=== PATIENT | female | born 1955 | race Hispanic/Latino ===

== ENCOUNTER 2017-03-18 10:26 | Inpatient (IN) | payer MEDICAID ==
--- NOTE | 2017-03-18 10:43 | ED PDOC ---
Arrival/HPI - General Time Seen by Provider: 03/18/17 10:39 Historian: Patient, Family - History of Present Illness Narrative History of Present Illness (Text): 03/18/17 10:35 Sharon Barrera is a 61 year old female whose past medical history includes hypertension, COPD, diabetes, and lung cancer (chemotherapy and radiation), who presents to the emergency department via EMS after her son found her on the ground. According to son, patient was not feeling well since last night and this morning he noticed she had right sided body weakness. Patient denies fever , headache, abdominal pain, chest pain, or other complaints. PMD: Dr. Sun Time/Duration: Prior to Arrival Symptom Onset: Sudden Symptom Course: Unchanged Activities at Onset: Rest Context: Home Past Medical History - Provider Review Nursing Documentation Reviewed: Yes - Infectious Disease Hx of Infectious Diseases: None - Tetanus Immunization Tetanus Immunization: Unknown - Cardiac Hx Cardiac Disorders: Yes Hx Hypertension: Yes - Pulmonary Hx Respiratory Disorders: Yes Hx Chronic Obstructive Pulmonary Disease (COPD): Yes Hx Lung Cancer: Yes Hx Tuberculosis: No - Neurological Hx Neurological Disorder: No - HEENT Hx HEENT Disorder: No Other/Comment: + eyeglasses - Renal Hx Renal Disorder: No - Endocrine/Metabolic Hx Endocrine Disorders: Yes Hx Diabetes Mellitus Type 2: Yes Hx Hypothyroidism: Yes - Hematological/Oncological Hx Cancer: Yes (Lung) Hx Chemotherapy: Yes (Last tx on 15 March 2016) - Integumentary Hx Dermatological Disorder: No - Musculoskeletal/Rheumatological Hx Musculoskeletal Disorders: Yes Hx Arthritis: Yes (lower back) - Gastrointestinal Hx Gastrointestinal Disorders: No - Genitourinary/Gynecological Hx Genitourinary Disorders: No - Psychiatric Hx Psychophysiologic Disorder: No Hx Substance Use: No - Past Surgical History Past Surgical History: No Previous - Surgical History Hx Tubal Ligation: Yes Other/Comment: R chest port a cath. L breast biopsy x 2 - Anesthesia Hx Anesthesia: Yes Hx Anesthesia Reactions: No Hx Malignant Hyperthermia: No - Suicidal Assessment Feels Threatened In Home Enviroment: No Family/Social History - Physician Review Nursing Documentation Reviewed: Yes Family/Social History: Unknown Family HX Smoking Status: Heavy Smoker > 10 Cigarettes Daily Hx Alcohol Use: No Hx Substance Use: No Hx Substance Use Treatment: No Allergies/Home Meds Allergies/Adverse Reactions: Allergies nicotin patch Allergy (Uncoded 03/20/16 15:20) RASH Home Medications: Home Meds Medication Instructions Recorded Confirmed Cyanocobalamin [Vitamin B12 1000 1,000 mcg PO DAILY 11/21/15 07/18/16 mcg Tab] Folic Acid 1 mg PO DAILY 11/21/15 07/18/16 Ipratropium [place] [Ipratropium 0.02 mg IH Q6H 11/21/15 07/18/16 [place]] Levalbuterol [Xopenex] 0.63 mg IH PRN PRN 11/21/15 07/18/16 Magnesium Oxide [Mag-Ox] 400 mg PO BID 11/21/15 07/18/16 Ranitidine HCl [Zantac] 300 mg PO DAILY 11/21/15 07/11/16 SITagliptin [Januvia] 100 mg PO DAILY 11/21/15 07/18/16 Gabapentin [Neurontin] 200 mg PO BID 11/22/15 07/18/16 Omeprazole 20 mg PO DAILY 11/22/15 07/18/16 Acyclovir [Zovirax] 400 mg PO BID 03/27/16 07/18/16 Dexamethasone [Decadron] 4 mg PO QOTHERDAY 07/11/16 07/18/16 Review of Systems - Review of Systems Constitutional: absent: Fevers Eyes: absent: Vision Changes ENT: absent: Epistaxis Respiratory: absent: SOB Cardiovascular: absent: Chest Pain Gastrointestinal: absent: Abdominal Pain, Nausea, Vomiting Genitourinary Female: absent: Dysuria, Frequency Musculoskeletal: absent: Back Pain Skin: absent: Rash Neurological: Focal Weakness (right sided ). absent: Headache Endocrine: absent: Diaphoresis Physical Exam Vital Signs Reviewed: Yes Vital Signs Temp Pulse Resp BP Pulse Ox 03/18/17 13:08 86 18 138/71 98 03/18/17 10:37 98.3 F 58 L 18 140/80 96 Temperature: Afebrile Blood Pressure: Normal Pulse: Bradycardic Respiratory Rate: Normal Appearance: Positive for: Well-Appearing, Non-Toxic, Comfortable Pain Distress: None Mental Status: Positive for: Alert and Oriented X 3 - Systems Exam Head: Present: Atraumatic, Normocephalic Pupils: Present: PERRL Extroacular Muscles: Present: EOMI Conjunctiva: Present: Normal Respiratory/Chest: Present: Clear to Auscultation, Good Air Exchange. No: Respiratory Distress, Accessory Muscle Use Cardiovascular: Present: Regular Rate and Rhythm, Normal S1, S2. No: Murmurs Neurological: Present: GCS=15, CN II-XII Intact, Speech Normal. No: Motor Func Grossly Intact (right sided weakness upper and lower extremity 1/5 compared to left side) Skin: Present: Warm, Dry, Normal Color. No: Rashes Psychiatric: Present: Alert, Oriented x 3, Normal Insight, Normal Concentration Medical Decision Making ED Course and Treatment: 03/18/17 Impression: 61 year old female with right sided weakness upper and lower extremity 1/5 compared to left side 5/5 strength. Plan: -- EKG -- Chest X-ray -- CT Head -- Labs -- Reassess and disposition Progress Notes: EKG: Ordered, reviewed, and independently interpreted the EKG. Rate : 103 BPM Rhythm : tachycardia Interpretation : No ST-segment elevations or depressions, no T-wave inversions, normal intervals. 03/18/17 12:[address]: Creator : Morgan Gu MD COMPARISON: 09/16/2015 FINDINGS: HEMORRHAGE: No intracranial hemorrhage. BRAIN: There is a large amount of vasogenic edema in the left hemisphere with a suspected 2.5 cm mass in the left frontal lobe. This is seen on image 26 series 2. A follow-up contrasted enhanced MRI scan is suggested for further evaluation. VENTRICLES: Unremarkable. No hydrocephalus. CALVARIUM: Unremarkable. PARANASAL SINUSES: Unremarkable as visualized. No significant inflammatory changes. MASTOID AIR CELLS: Unremarkable as visualized. No inflammatory changes. OTHER FINDINGS: None. IMPRESSION: Large amount of vasogenic edema in the left hemisphere with probable 2.5 cm mass in the left frontal lobe. Follow-up MRI with contrast is recommended - Lab Interpretations Lab Results: 03/18/17 11:05 03/18/17 11:05 Lab Results 03/18/17 11:05: Sodium 139, Potassium 3.8, Chloride 104, Carbon Dioxide 23, Anion Gap 15, BUN 24 H, Creatinine 1.3 H, Est GFR ( Amer) 50, Est GFR ( Non-Af Amer) 41, Random Glucose 161 H, Calcium 10.4, Total Bilirubin 1.2, AST 18 , ALT 23, Alkaline Phosphatase 85, Total Creatine Kinase 95, Troponin I 0.03 D , Total Protein 7.4, Albumin 4.3, Globulin 3.1, Albumin/Globulin Ratio 1.4 03/18/17 11:05: PT 13.4 H, INR 1.21 H, APTT 32.7 03/18/17 11:05: WBC 8.7 D, RBC 3.80, Hgb 10.8 L, Hct 33.0 L, MCV 86.8, MCH 28.4 , MCHC 32.7, RDW 20.2 H, Plt Count 57 L, MPV 9.1, Gran % 82.5 H, Lymph % (Auto) 7.1 L, Phillips % (Auto) 9.1 H, Eos % (Auto) 0.6 L, Baso % (Auto) 0.7, Gran # 7.17 H , Lymph # 0.6 L, Phillips # 0.8 H, Eos # 0.1, Baso # 0.06 I have reviewed the lab results: Yes - RAD Interpretation Radiology Orders: 03/18/17 10:51 HEAD W/O CONTRAST [CT] Stat Day Treatment Clinician/Art Therapist: Radiologist - EKG Interpretation Interpreted by ED Physician: Yes Type: 12 lead EKG - Medication Orders Current Medication Orders: Amlodipine Besylate (Norvasc) 10 mg PO DAILY [facility] Atorvastatin Calcium (Lipitor) 10 mg PO DIN [facility] Folic Acid (Folic Acid) 1 mg PO DAILY [facility] Gabapentin (Neurontin) 200 mg PO BID [facility] PRN Reason: Protocol Levothyroxine Sodium (Synthroid) 125 mcg PO ACB [facility] Pantoprazole Sodium (Protonix Ec Tab) 40 mg PO DAILY [facility] Ramipril (Altace) 10 mg PO DAILY [facility] Sitagliptin Phosphate (Januvia) 100 mg PO DAILY [facility] Discontinued Medications Dexamethasone (Decadron Inj) 10 mg IVP STAT STA Stop: 03/18/17 13:11 - Scribe Statement The provider has reviewed the documentation as recorded by the Patrick Huber Provider Scribe Attestation: All medical record entries made by the Scribe were at my direction and personally dictated by me. I have reviewed the chart and agree that the record accurately reflects my personal performance of the history, physical exam, medical decision making, and the department course for this patient. I have also personally directed, reviewed, and agree with the discharge instructions and disposition. Disposition/Present on Arrival - Present on Arrival Any Indicators Present on Arrival: No History of DVT/PE: No History of Uncontrolled Diabetes: No Urinary Catheter: No History Surgical Site Infection Following: None - Disposition Have Diagnosis and Disposition been Completed?: Yes Disposition: HOSPITALIZED Disposition Time: 13:17 Patient Plan: Admission Condition: FAIR
[2017-03-18 11:22] LABS: BASO # 0.06 K/mm3 (0.0-2.0); BASO % 0.7 % (0.0-3.0); EOS # 0.1 (0.0-0.7); EOS % 0.6 % (1.5-5.0); GRAN # 7.17 (1.4-6.5); GRAN % 82.5 % (50.0-68.0); LYMPH # 0.6 (1.2-3.4); LYMPH % 7.1 % (22.0-35.0); MEAN CELL VOLUME 86.8 fl (80.0-105.0); MEAN CORPUSCULAR HEMOGLOBIN 28.4 pg (25.0-35.0); MEAN CORPUSCULAR HGB CONC 32.7 g/dl (31.0-37.0); MEAN PLATELET VOLUME 9.1 fl (7.0-11.0); MONO # 0.8 (0.1-0.6); MONO % 9.1 % (1.0-6.0); RED CELL DISTRIBUTION WIDTH 20.2 % (11.5-14.5); WHITE BLOOD COUNT 8.7 10^3/ul (4.5-11.0)
[2017-03-18 11:31] LABS: INR 1.21 (0.93-1.08); PARTIAL THROMBOPLASTIN TIME 32.7 Seconds (25.1-36.5)
[2017-03-18 11:52] LABS: ALB/GLOB RATIO 1.4 (1.1-1.8); BILIRUBIN,TOTAL 1.2 mg/dL (0.2-1.3); CALCIUM 10.4 mg/dL (8.4-10.5); POTASSIUM 3.8 mmol/L (3.6-5.0); TOTAL PROTEIN 7.4 g/dL (5.8-8.3)
[2017-03-18 12:01] LABS: TROPONIN I 0.03 ng/mL
--- NOTE | 2017-03-18 12:22 | CT ---
PROCEDURE: CT HEAD WITHOUT CONTRAST. HISTORY: tia COMPARISON: 09/16/2015 TECHNIQUE: Axial computed tomography images were obtained through the head/brain without intravenous contrast. Radiation dose: Total exam DLP = 581 mGy-cm. This CT exam was performed using one or more of the following dose reduction techniques: Automated exposure control, adjustment of the mA and/or kV according to patient size, and/or use of iterative reconstruction technique. FINDINGS: HEMORRHAGE: No intracranial hemorrhage. BRAIN: There is a large amount of vasogenic edema in the left hemisphere with a suspected 2.5 cm mass in the left frontal lobe. This is seen on image 26 series 2. A follow-up contrasted enhanced MRI scan is suggested for further evaluation. VENTRICLES: Unremarkable. No hydrocephalus. CALVARIUM: Unremarkable. PARANASAL SINUSES: Unremarkable as visualized. No significant inflammatory changes. MASTOID AIR CELLS: Unremarkable as visualized. No inflammatory changes. OTHER FINDINGS: None. IMPRESSION: Large amount of vasogenic edema in the left hemisphere with probable 2.5 cm mass in the left frontal lobe. Follow-up MRI with contrast is recommended
--- NOTE | 2017-03-18 12:42 | CARD ---
APPROVED REPORT EKG Measurement Heart [id number] <Conclusion> Poor data quality, interpretation may be adversely affected Sinus tachycardia with fusion complexes Possible Inferior infarct, age undetermined Abnormal ECG
[2017-03-18] MEDS ORDERED: Levothyroxine 125 MCG TAB PO SCH (13:15)
[2017-03-18] MEDS: Pantoprazole 40 mg EC Tab PO SCH (15:35)
--- NOTE | 2017-03-18 15:39 | CP.PCM.CON ---
<Mari Branham - Last Filed: 03/18/17 15:44> History of Present Illness - History of Present Illness History of Present Illness: PGY-2 Neurology consult note for Dr. Dobbins's 61 year old female with past medical history of hypertension, COPD, diabetes, and lung cancer (chemotherapy and radiation), who presents to the emergency department via EMS after her son found her on the ground. According to son, he found on the ground face down, originally she was unresponsive but woke when he son found her. Son states that he moved her to the bed and noticed that she was slurring her speech and unable to move her right side. He states that she was walking abnormally the night before but denies any recent illnesses. Her last chemotherapy was in February. Patient also states that she has had radiation to both her chest and head. Patient denies fever, headache, abdominal pain, chest pain, or other complaints. PMH: hypertension, COPD, diabetes, and lung cancer (chemotherapy and radiation) PSH: denies social history: smoked 1 ppd, denies alcohol use, illicit drug use allergy: nicotin patch Review of Systems - Review of Systems All systems: reviewed and no additional remarkable complaints except (as stated in HPI) Past Patient History - Infectious Disease Hx of Infectious Diseases: None - Tetanus Immunizations Tetanus Immunization: Unknown - Past Social History Smoking Status: Heavy Smoker > 10 Cigarettes Daily - CARDIAC Hx Cardiac Disorders: Yes Hx Hypertension: Yes - PULMONARY Hx Respiratory Disorders: Yes Hx Chronic Obstructive Pulmonary Disease (COPD): Yes Hx Lung Cancer: Yes Hx Tuberculosis: No - NEUROLOGICAL Hx Neurological Disorder: No - HEENT Hx HEENT Problems: No Other/Comment: + eyeglasses - RENAL Hx Chronic Kidney Disease: No - ENDOCRINE/METABOLIC Hx Endocrine Disorders: Yes Hx Diabetes Mellitus Type 2: Yes Hx Hypothyroidism: Yes - HEMATOLOGICAL/ONCOLOGICAL Hx Cancer: Yes (Lung) Hx Chemotherapy: Yes (Last tx on 15 March 2016) - INTEGUMENTARY Hx Dermatological Problems: No - MUSCULOSKELETAL/RHEUMATOLOGICAL Hx Musculoskeletal Disorders: Yes Hx Arthritis: Yes (lower back) - GASTROINTESTINAL Hx Gastrointestinal Disorders: No - GENITOURINARY/GYNECOLOGICAL Hx Genitourinary Disorders: No - PSYCHIATRIC Hx Psychophysiologic Disorder: No Hx Substance Use: No - SURGICAL HISTORY Hx Tubal Ligation: Yes Other/Comment: R chest port a cath. L breast biopsy x 2 - ANESTHESIA Hx Anesthesia: Yes Hx Anesthesia Reactions: No Hx Malignant Hyperthermia: No Meds Allergies/Adverse Reactions: Allergies Allergy/AdvReac Type Severity Reaction Status Date / Time nicotin patch Allergy RASH Uncoded 03/20/16 15:20 - Medications Medications: Current Medications Amlodipine Besylate (Norvasc) 10 mg PO DAILY [facility] Atorvastatin Calcium (Lipitor) 10 mg PO DIN [facility] Folic Acid (Folic Acid) 1 mg PO DAILY [facility] Gabapentin (Neurontin) 200 mg PO BID [facility] PRN Reason: Protocol Dexamethasone 8 mg/ Sodium (Chloride) 52 mls @ 150 mls/hr IV Q12 [facility] Levetiracetam (Keppra 500mg Ivpb) 500 mg in 100 mls @ 400 mls/hr IVPB Q12 [facility] Insulin Human Regular (Humulin R Low) 0 units SC ACHS [facility] PRN Reason: Protocol Levothyroxine Sodium (Synthroid) 112 mcg PO 0600 [facility] Lorazepam (Ativan) 0.5 mg IVP ONCE ONE PRN Reason: Protocol Stop: 03/18/17 15:34 Pantoprazole Sodium (Protonix Ec Tab) 40 mg PO DAILY [facility] Ramipril (Altace) 10 mg PO DAILY [facility] Physical Exam - Constitutional Appears: No Acute Distress - Head Exam Head Exam: ATRAUMATIC, NORMAL INSPECTION, NORMOCEPHALIC - Eye Exam Eye Exam: EOMI, Normal appearance, PERRL - ENT Exam ENT Exam: Mucous Membranes Moist - Respiratory Exam Respiratory Exam: Clear to Auscultation Bilateral, NORMAL BREATHING PATTERN. absent: Rhonchi, Wheezes, Respiratory Distress - Cardiovascular Exam Cardiovascular Exam: REGULAR RHYTHM. absent: Tachycardia - Extremities Exam Extremities exam: Positive for: normal inspection. Negative for: pedal edema - Neurological Exam Neurological exam: Alert, CN II-XII Intact - Expanded Neurological Exam Expanded Patient oriented to: place Speech: Slurred Speech Cranial nerves: EOM's Intact: Normal, Nystagmus: Normal, Tongue Deviation: Normal Cerebellar Function: Finger to Nose: Normal Neuro motor strength exam: Left Upper Extremity: 5, Right Upper Extremity: 2/1, Left Lower Extremity: 5, Right Lower Extremity: 2/1 Results - Vital Signs Recent Vital Signs: Last Vital Signs Temp 98.3 F 03/18/17 10:37 Pulse 86 03/18/17 13:08 Resp 18 03/18/17 13:08 BP 138/71 03/18/17 13:08 Pulse Ox 98 12/04/17 13:08 - Labs Result Diagrams: 03/18/17 11:05 03/18/17 11:05 Assessment & Plan - Assessment and Plan (Free Text) Assessment: 61 year old female with past medical history of hypertension, COPD, diabetes, and lung cancer (chemotherapy and radiation), who presents to the emergency department with right sided weakness and slurred speech secondary left frontal mass due to metastatic lung cancer with vasogenic edema. 1. metastatic lung cancer 2. HTN 3. diabetes 4. COPD - CT of head showed 2.5cm mass in left frontal lobe - MRI ordered - decadron 8mg q12 - neurosurgery consult - recommend radiology oncology consult for - started keppra 500mg q12 - EEG ordered Case reviewed and discussed with attending. <Everardo Dobbins - Last Filed: 03/18/17 23:06> Meds - Medications Medications: Current Medications Amlodipine Besylate (Norvasc) 10 mg PO DAILY [facility] Last Admin: 03/18/17 15:36 Dose: 10 mg Atorvastatin Calcium (Lipitor) 10 mg PO DIN [facility] Folic Acid (Folic Acid) 1 mg PO DAILY [facility] Last Admin: 03/18/17 15:35 Dose: 1 mg Gabapentin (Neurontin) 200 mg PO BID [facility] PRN Reason: Protocol Last Admin: 03/18/17 18:18 Dose: 200 mg Dexamethasone 8 mg/ Sodium (Chloride) 52 mls @ 150 mls/hr IV Q12 [facility] Last Admin: 03/18/17 21:17 Dose: 150 mls/hr Levetiracetam (Keppra 500mg Ivpb) 500 mg in 100 mls @ 400 mls/hr IVPB Q12 [facility] Last Admin: 03/18/17 21:20 Dose: 400 mls/hr Insulin Human Regular (Humulin R Low) 0 units SC ACHS [facility] PRN Reason: Protocol Last Admin: 03/18/17 21:45 Dose: Not Given Levothyroxine Sodium (Synthroid) 112 mcg PO 0600 [facility] Pantoprazole Sodium (Protonix Ec Tab) 40 mg PO DAILY [facility] Last Admin: 03/18/17 15:35 Dose: 40 mg Ramipril (Altace) 10 mg PO DAILY [facility] Results - Vital Signs Recent Vital Signs: Last Vital Signs Temp 9.3 F L 03/18/17 19:02 Pulse 72 03/18/17 19:02 Resp 18 03/18/17 19:02 BP 128/79 03/18/17 19:02 Pulse Ox 98 03/18/17 16:05 - Labs Result Diagrams: 03/18/17 11:05 03/18/17 11:05 Attending/Attestation - Attestation I have personally seen and examined this patient.: Yes I have fully participated in the care of the patient.: Yes I have reviewed all pertinent clinical information: Yes
[2017-03-18] MEDS ORDERED: Gadodiamide 287 MG/ML VIAL (15ML) IV ONE (16:22)
[2017-03-18] MEDS: Insulin Reg-LOW-Coverage SC SCH ×2 (18:19→21:45)
[2017-03-18 19:21] VITALS: BMI 24.4
[2017-03-18] MEDS ORDERED: Influenza Vaccine 60 mcg/0.5 mL SYR (4YR UP) IM ONE (19:22)
[2017-03-18] MEDS ORDERED: Dexamethasone 4 mg/1 ml ONE (20:57)
[2017-03-18] MEDS: levETIRAcetam 500mg IVPB 500 MG/100 ML BAG IVPB SCH (21:20)
--- NOTE | 2017-03-18 21:33 | CP.PCM.CON ---
History of Present Illness - History of Present Illness History of Present Illness: Covering Dr. Poon 61 year old female with a history of small cell lung caner dx 10/2014 s/p chemo+ radiation, presenting with AMS, found to have a left frontal brain mass. I am unable to obtain a history from the patient. Per her records, it appears she was found down by her son and brought to the hospital. CT of the brain suggested a left frontal mass of about 2.5cm with vasogenic edema. Past medical, surgical, family, social history cannot be obtained. Allergies: Per documentation nicotine patch Review of systems cannot be obtained. Past Patient History - Infectious Disease Hx of Infectious Diseases: None - Tetanus Immunizations Tetanus Immunization: Unknown - Past Social History Smoking Status: Heavy Smoker > 10 Cigarettes Daily - CARDIAC Hx Cardiac Disorders: Yes Hx Hypercholesterolemia: Yes Hx Hypertension: Yes - PULMONARY Hx Respiratory Disorders: Yes (uses nebulizer machine at home) Hx Chronic Obstructive Pulmonary Disease (COPD): Yes Hx Tuberculosis: No Other/Comment: smokes 1/2 ppd - NEUROLOGICAL Hx Dizziness: Yes (vertigo) - HEENT Hx HEENT Problems: No Other/Comment: + eyeglasses - RENAL Hx Chronic Kidney Disease: No - ENDOCRINE/METABOLIC Hx Endocrine Disorders: Yes Hx Diabetes Mellitus Type 2: Yes Hx Hypothyroidism: Yes - HEMATOLOGICAL/ONCOLOGICAL Hx Anemia: Yes (blood transfusion) Hx Cancer: Yes (Lung dx 2014) Hx Chemotherapy: Yes (chemo ongoing last tx before ) Other/Comment: also had radiation treatments in the past for lung ca - INTEGUMENTARY Hx Dermatological Problems: Yes Other/Comment: right hand wrist elbow bruised and swollen with decreased rom of fingers and painful - MUSCULOSKELETAL/RHEUMATOLOGICAL Hx Falls: Yes (found on floor today) - GASTROINTESTINAL Hx Gastrointestinal Disorders: No - GENITOURINARY/GYNECOLOGICAL Hx Incontinence: Yes (was incontinent today) - PSYCHIATRIC Hx Substance Use: No - SURGICAL HISTORY Other/Comment: R chest port a cath, left lung bx. L breast biopsy x 2 - ANESTHESIA Hx Anesthesia: Yes Hx Anesthesia Reactions: No Hx Malignant Hyperthermia: No Meds Allergies/Adverse Reactions: Allergies Allergy/AdvReac Type Severity Reaction Status Date / Time nicotin patch Allergy RASH Uncoded 03/20/16 15:20 - Medications Medications: Current Medications Amlodipine Besylate (Norvasc) 10 mg PO DAILY [facility] Last Admin: 03/18/17 15:36 Dose: 10 mg Atorvastatin Calcium (Lipitor) 10 mg PO DIN [facility] Folic Acid (Folic Acid) 1 mg PO DAILY [facility] Last Admin: 03/18/17 15:35 Dose: 1 mg Gabapentin (Neurontin) 200 mg PO BID [facility] PRN Reason: Protocol Last Admin: 03/18/17 18:18 Dose: 200 mg Dexamethasone 8 mg/ Sodium (Chloride) 52 mls @ 150 mls/hr IV Q12 [facility] Last Admin: 03/18/17 21:17 Dose: 150 mls/hr Levetiracetam (Keppra 500mg Ivpb) 500 mg in 100 mls @ 400 mls/hr IVPB Q12 [facility] Last Admin: 03/18/17 21:20 Dose: 400 mls/hr Insulin Human Regular (Humulin R Low) 0 units SC ACHS [facility] PRN Reason: Protocol Last Admin: 03/18/17 18:19 Dose: Not Given Levothyroxine Sodium (Synthroid) 112 mcg PO 0600 [facility] Pantoprazole Sodium (Protonix Ec Tab) 40 mg PO DAILY [facility] Last Admin: 03/18/17 15:35 Dose: 40 mg Ramipril (Altace) 10 mg PO DAILY [facility] Physical Exam - Head Exam Head Exam: ATRAUMATIC - Eye Exam Eye Exam: Normal appearance - ENT Exam ENT Exam: Mucous Membranes Dry - Respiratory Exam Respiratory Exam: NORMAL BREATHING PATTERN - Cardiovascular Exam Cardiovascular Exam: +S1, +S2 - GI/Abdominal Exam GI & Abdominal Exam: Normal Bowel Sounds - Extremities Exam Extremities exam: Positive for: normal inspection Results - Vital Signs Recent Vital Signs: Last Vital Signs Temp 9.3 F L 03/18/17 19:02 Pulse 72 03/18/17 19:02 Resp 18 03/18/17 19:02 BP 128/79 03/18/17 19:02 Pulse Ox 98 03/18/17 16:05 - Labs Result Diagrams: 03/18/17 11:05 03/18/17 11:05 Assessment & Plan (1) Brain mass Assessment and Plan: likely metastatic small cell lung cancer agree with steroids neurosurgery to see the patient will consult radiation oncology for input regarding whole brain radiotherapy Status: Acute (2) Thrombocytopenia Assessment and Plan: nursing reports recent completion of oncologic treatment likely treatment related Status: Acute (3) Anemia Assessment and Plan: mild may be treatment related Status: Acute (4) Coagulopathy Assessment and Plan: mild, no intervention Thank you for this interesting consult. Status: Acute
[2017-03-19] MEDS: Levothyroxine 112 MCG TAB PO SCH (05:36)
--- NOTE | 2017-03-19 07:53 | RAD ---
PROCEDURE: Radiographs of the right humerus. HISTORY: arm pain COMPARISON: None. FINDINGS: BONES: Normal. No fracture or focal lesion. SOFT TISSUES: Normal. OTHER FINDINGS: None. IMPRESSION: Normal radiographs of right humerus.
[2017-03-19] MEDS: Insulin Reg-LOW-Coverage SC SCH ×4 (08:37→22:15)
--- NOTE | 2017-03-19 09:45 | MRI ---
PROCEDURE: MRI BRAIN WITHOUT CONTRAST HISTORY: abnromal ct head with mass/ rigth side weakness. COMPARISON: 12/18/2016 TECHNIQUE: Multiplanar, multisequence MR images of the brain were obtained without intravenous contrast enhancement. The study is very limited. The patient was combative. There is no contrast administered FINDINGS: HEMORRHAGE: None DWI: There is a 2.3 x 3 cm area of restricted diffusion in the left frontal lobe. BRAIN PARENCHYMA: There is a 2.3 x 3 cm lesion in the left frontal lobe which is isodense to jackson matter on T2 and FLAIR images. This shows a moderate amount of restricted diffusion. There is a large amount of surrounding vasogenic edema throughout the left hemisphere. The findings are most consistent with a metastatic lesion rather than an infarct. A repeat study when the patient is in better condition and better sedated would be helpful for further evaluation. The repeat exam should include contrast-enhancement. VENTRICLES: Unremarkable. No hydrocephalus. CRANIUM: Unremarkable. ORBITS: Grossly unremarkable. PARANASAL SINUSES/MASTOIDS: Clear VASCULAR SYSTEM: Skull base flow voids intact. OTHER FINDINGS: None. IMPRESSION: There is a 2.3 x 3 cm lesion in the left frontal lobe which is isodense to jackson matter on T2 and FLAIR images. This shows a moderate amount of restricted diffusion. There is a large amount of surrounding vasogenic edema throughout the left hemisphere. Findings are most consistent with a neoplastic lesion. See comment
--- NOTE | 2017-03-19 09:46 | CP.PCM.CON ---
History of Present Illness - History of Present Illness History of Present Illness: Ms Barrera is a 61 year with metastatic small cell lung cancer. She is known to our radiation therapy department. She received chemoradiation to the lung cancer. She had whole brain radiation therapy in May 2016 for multiple brain metastases in the right temporal, right frontal and left semiovale. After the radiation, she continued chemotherapy with Dr Poon. Her last chemotherapy was around . As per the family, she seemed have generalized weakness. Yesterday morning, her son found to her on the floor unresponsive at home. She was brought to [facility] [place] further evaluation. She was started on decadron. A CT of the head on March 18, 2017 revealed a large amount of vasogenic edema in the left hemisphere with a suspected 2.5cm mass in the left frontal lobe. She does not recall how long she has had right sided weakness. She is referred to us for our input regarding radiation Review of Systems - Constitutional Constitutional: Weakness - Musculoskeletal Musculoskeletal: Muscle Weakness Additional comments: right sided weakness Past Patient History - Infectious Disease Hx of Infectious Diseases: None - Tetanus Immunizations Tetanus Immunization: Unknown - Past Social History Smoking Status: Heavy Smoker > 10 Cigarettes Daily Home Situation {Lives}: With Family - CARDIAC Hx Cardiac Disorders: Yes Hx Hypercholesterolemia: Yes Hx Hypertension: Yes - PULMONARY Hx Respiratory Disorders: Yes (uses nebulizer machine at home) Hx Chronic Obstructive Pulmonary Disease (COPD): Yes Hx Tuberculosis: No Other/Comment: smokes 1/2 ppd - NEUROLOGICAL Hx Dizziness: Yes (vertigo) - HEENT Hx HEENT Problems: No Other/Comment: + eyeglasses - RENAL Hx Chronic Kidney Disease: No - ENDOCRINE/METABOLIC Hx Endocrine Disorders: Yes Hx Diabetes Mellitus Type 2: Yes Hx Hypothyroidism: Yes - HEMATOLOGICAL/ONCOLOGICAL Hx Anemia: Yes (blood transfusion) Hx Cancer: Yes (Lung dx 2014) Hx Chemotherapy: Yes (chemo ongoing last tx before ) Other/Comment: also had radiation treatments in the past for lung ca - INTEGUMENTARY Hx Dermatological Problems: Yes Other/Comment: right hand wrist elbow bruised and swollen with decreased rom of fingers and painful - MUSCULOSKELETAL/RHEUMATOLOGICAL Hx Falls: Yes (found on floor today) - GASTROINTESTINAL Hx Gastrointestinal Disorders: No - GENITOURINARY/GYNECOLOGICAL Hx Incontinence: Yes (was incontinent today) - PSYCHIATRIC Hx Substance Use: No - SURGICAL HISTORY Other/Comment: R chest port a cath, left lung bx. L breast biopsy x 2 - ANESTHESIA Hx Anesthesia: Yes Hx Anesthesia Reactions: No Hx Malignant Hyperthermia: No Meds Allergies/Adverse Reactions: Allergies Allergy/AdvReac Type Severity Reaction Status Date / Time nicotin patch Allergy RASH Uncoded 03/20/16 15:20 - Medications Medications: Current Medications Amlodipine Besylate (Norvasc) 10 mg PO DAILY [facility] Last Admin: 03/18/17 15:36 Dose: 10 mg Atorvastatin Calcium (Lipitor) 10 mg PO DIN [facility] Last Admin: 03/18/17 17:50 Dose: Not Given Folic Acid (Folic Acid) 1 mg PO DAILY [facility] Last Admin: 03/18/17 15:35 Dose: 1 mg Gabapentin (Neurontin) 200 mg PO BID [facility] PRN Reason: Protocol Last Admin: 03/18/17 18:18 Dose: 200 mg Dexamethasone 8 mg/ Sodium (Chloride) 52 mls @ 150 mls/hr IV Q12 [facility] Levetiracetam (Keppra 500mg Ivpb) 500 mg in 100 mls @ 400 mls/hr IVPB Q12 [facility] Last Admin: 03/18/17 21:20 Dose: 400 mls/hr Insulin Human Regular (Humulin R Low) 0 units SC ACHS [facility] PRN Reason: Protocol Last Admin: 03/19/17 08:37 Dose: 2 units Levothyroxine Sodium (Synthroid) 112 mcg PO 0600 [facility] Last Admin: 03/19/17 05:36 Dose: 112 mcg Pantoprazole Sodium (Protonix Ec Tab) 40 mg PO DAILY [facility] Last Admin: 03/18/17 15:35 Dose: 40 mg Ramipril (Altace) 10 mg PO DAILY [facility] Last Admin: 03/18/17 17:50 Dose: Not Given Physical Exam - Eye Exam Eye Exam: EOMI - ENT Exam ENT Exam: Mucous Membranes Moist - Respiratory Exam Respiratory Exam: Wheezes - Cardiovascular Exam Cardiovascular Exam: REGULAR RHYTHM - GI/Abdominal Exam GI & Abdominal Exam: Normal Bowel Sounds - Neurological Exam Additional comments: right upper extremity weakness 1/5 and right lower extremity weakness 2/5. Left sided strength is intact Results - Vital Signs Recent Vital Signs: Last Vital Signs Temp 97.5 F L 03/19/17 06:00 Pulse 63 03/19/17 06:00 Resp 20 03/19/17 06:00 BP 96/57 L 03/19/17 06:00 Pulse Ox 94 L 03/18/17 22:00 - Labs Result Diagrams: 03/18/17 11:05 03/18/17 11:05 Labs: Laboratory Results - last 24 hr 03/18/17 21:28 POC Glucose (mg/dL) 289 H Assessment & Plan - Assessment and Plan (Free Text) Assessment: Ms Calhoun has metastatic small cell lung cancer. She had whole brain radiation therapy in May 2016. It appears that she has at least one new lesion in the left frontal lobe with edema. She will be getting a MRI of the brain to delineate the extent of her intracranial disease. She may be a good candidate for SRS for the lesion causing her symptoms. We will need the MRI first. We are aware that neurosurgery has been called as well.
--- NOTE | 2017-03-19 10:34 | CP.PCM.PN ---
<Mari Branham - Last Filed: 03/19/17 16:06> Subjective - Date & Time of Evaluation Date of Evaluation: 03/19/17 Time of Evaluation: 10:32 - Subjective Subjective: PGY-2 Neurology progress note for Dr. dobbins's service Patient seen and examined at bedside. No acute distress. Patient is alert and oriented to person, place, time but is somewhat confused. She denies any pain, dizziness, headache, abd pain, N&V. She continues to have weakness in right sided upper and lower extremities. Objective - Vital Signs/Intake and Output Vital Signs (last 24 hours): Temp Pulse Resp BP Pulse Ox 97.5 F L 63 20 96/57 L 94 L 03/19/17 06:00 03/19/17 06:00 03/19/17 06:00 03/19/17 06:00 03/18/17 22:00 Intake and Output: 03/19/17 03/19/17 06:59 18:59 Intake Total 0 Output Total 200 Balance -200 - Medications Medications: Current Medications Amlodipine Besylate (Norvasc) 10 mg PO DAILY [facility] Last Admin: 03/18/17 15:36 Dose: 10 mg Atorvastatin Calcium (Lipitor) 10 mg PO DIN [facility] Last Admin: 03/18/17 17:50 Dose: Not Given Folic Acid (Folic Acid) 1 mg PO DAILY [facility] Last Admin: 03/18/17 15:35 Dose: 1 mg Gabapentin (Neurontin) 200 mg PO BID [facility] PRN Reason: Protocol Last Admin: 03/18/17 18:18 Dose: 200 mg Dexamethasone 8 mg/ Sodium (Chloride) 52 mls @ 150 mls/hr IV Q12 [facility] Levetiracetam (Keppra 500mg Ivpb) 500 mg in 100 mls @ 400 mls/hr IVPB Q12 [facility] Last Admin: 03/18/17 21:20 Dose: 400 mls/hr Insulin Human Regular (Humulin R Low) 0 units SC ACHS [facility] PRN Reason: Protocol Last Admin: 03/19/17 08:37 Dose: 2 units Levothyroxine Sodium (Synthroid) 112 mcg PO 0600 [facility] Last Admin: 03/19/17 05:36 Dose: 112 mcg Pantoprazole Sodium (Protonix Ec Tab) 40 mg PO DAILY [facility] Last Admin: 12/04/17 15:35 Dose: 40 mg Ramipril (Altace) 10 mg PO DAILY [facility] Last Admin: 03/18/17 17:50 Dose: Not Given - Labs Labs: PT 13.4 SECONDS (9.4-12.5) H 03/18/17 11:05 INR 1.21 (0.93-1.08) H 03/18/17 11:05 APTT 32.7 Seconds (25.1-36.5) 03/18/17 11:05 - Constitutional Appears: No Acute Distress - Head Exam Head Exam: ATRAUMATIC, NORMAL INSPECTION, NORMOCEPHALIC - Eye Exam Eye Exam: EOMI, Normal appearance - ENT Exam ENT Exam: Mucous Membranes Moist - Respiratory Exam Respiratory Exam: Clear to Ausculation Bilateral, NORMAL BREATHING PATTERN. absent: Respiratory Distress - Cardiovascular Exam Cardiovascular Exam: REGULAR RHYTHM - Neurological Exam Neurological Exam: Alert, Awake, CN II-XII Intact Neuro motor strength exam: Left Upper Extremity: 5, Right Upper Extremity: 2/1, Left Lower Extremity: 5, Right Lower Extremity: 2/1 - Skin Skin Exam: Dry, Intact, Normal Color, Warm Assessment and Plan - Assessment and Plan (Free Text) Assessment: 61 year old female with past medical history of hypertension, COPD, diabetes, and lung cancer (chemotherapy and radiation), who presents to the emergency department with right sided weakness and slurred speech secondary left frontal mass due to metastatic lung cancer with vasogenic edema. 1. metastatic lung cancer 2. HTN 3. diabetes 4. COPD - CT of head showed 2.5cm mass in left frontal lobe - MRI showed 2.3x3 cm lesion in left frontal lobe with surrounding vasogenic edema. - continue decadron 8mg q12 - continue to montior blood sugar will increase due to steroids - neurosurgery consulted - heme/onc consulted as well as radiology oncology - started keppra 500mg q12 for seizure precaution - EEG ordered Case reviewed and discussed with attending. <Everardo Dobbins - Last Filed: 03/19/17 17:06> Objective - Vital Signs/Intake and Output Vital Signs (last 24 hours): Temp Pulse Resp BP Pulse Ox 97.4 F L 56 L 20 101/64 99 03/19/17 16:00 03/19/17 16:00 03/19/17 16:00 03/19/17 16:00 03/19/17 16:00 Intake and Output: 03/19/17 03/19/17 06:59 18:59 Intake Total 540 Output Total 200 Balance 340 - Medications Medications: Current Medications Amlodipine Besylate (Norvasc) 10 mg PO DAILY [facility] Last Admin: 03/19/17 11:59 Dose: Not Given Atorvastatin Calcium (Lipitor) 10 mg PO DIN [facility] Last Admin: 03/18/17 17:50 Dose: Not Given Folic Acid (Folic Acid) 1 mg PO DAILY [facility] Last Admin: 03/18/17 15:35 Dose: 1 mg Gabapentin (Neurontin) 200 mg PO BID [facility] PRN Reason: Protocol Last Admin: 03/19/17 11:54 Dose: 200 mg Dexamethasone 8 mg/ Sodium (Chloride) 52 mls @ 150 mls/hr IV Q12 [facility] Last Admin: 03/19/17 12:04 Dose: 150 mls/hr Levetiracetam (Keppra 500mg Ivpb) 500 mg in 100 mls @ 400 mls/hr IVPB Q12 [facility] Last Admin: 03/19/17 12:37 Dose: 400 mls/hr Insulin Human Regular (Humulin R Low) 0 units SC ACHS [facility] PRN Reason: Protocol Last Admin: 03/19/17 12:37 Dose: 2 units Levothyroxine Sodium (Synthroid) 112 mcg PO 0600 [facility] Last Admin: 03/19/17 05:36 Dose: 112 mcg Pantoprazole Sodium (Protonix Ec Tab) 40 mg PO DAILY [facility] Last Admin: 03/19/17 11:55 Dose: 40 mg Ramipril (Altace) 10 mg PO DAILY [facility] Last Admin: 03/19/17 11:55 Dose: 10 mg - Labs Labs: PT 13.4 SECONDS (9.4-12.5) H 03/18/17 11:05 INR 1.21 (0.93-1.08) H 03/18/17 11:05 APTT 32.7 Seconds (25.1-36.5) 03/18/17 11:05 Attending/Attestation - Attestation I have personally seen and examined this patient.: Yes I have fully participated in the care of the patient.: Yes I have reviewed all pertinent clinical information, including history, physical exam and plan: Yes
[2017-03-19] MEDS ORDERED: Dexamethasone 4 mg/1 ml ONE (11:30)
[2017-03-19] MEDS: Pantoprazole 40 mg EC Tab PO SCH (11:55)
[2017-03-19] MEDS: levETIRAcetam 500mg IVPB 500 MG/100 ML BAG IVPB SCH ×2 (12:37→21:16)
[2017-03-19] MEDS ORDERED: Gadodiamide 287 MG/ML VIAL (15ML) IV ONE (14:13)
--- NOTE | 2017-03-19 14:50 | MRI ---
PROCEDURE: MRI BRAIN WITH CONTRAST HISTORY: small cell w/ brain met w/ edema COMPARISON: Nonenhanced study performed yesterday limited by motion artifact TECHNIQUE: Multiplanar, multisequence MR images of the brain were obtained with and without intravenous contrast enhancement. 15 cc of Omniscan FINDINGS: HEMORRHAGE: None BRAIN PARENCHYMA: There is a rim enhancing complex mass in the left frontal white matter. This measures 29 mm with by 21 mm AP by 39 mm in height. Based on appearance alone this could represent a primary brain neoplasm. However given the history of small cell carcinoma this is most likely a cystic metastatic lesion. There is extensive surrounding vasogenic edema ENHANCEMENT: As above VENTRICLES: Unremarkable. No hydrocephalus. CRANIUM: Unremarkable. ORBITS: Grossly unremarkable. PARANASAL SINUSES/MASTOIDS: Clear VASCULAR SYSTEM: Skull base flow voids intact. OTHER FINDINGS: None . IMPRESSION: There is a rim enhancing complex mass in the left frontal white matter. This measures 29 mm width by 21 mm AP by 39 mm in height. Based on appearance alone this could represent a primary brain neoplasm. However given the history of small cell carcinoma this is most likely a cystic metastatic lesion. There is extensive surrounding vasogenic edema
--- NOTE | 2017-03-19 16:11 | CP.PCM.PN ---
Subjective - Date & Time of Evaluation Date of Evaluation: 03/19/17 Time of Evaluation: 16:07 - Subjective Subjective: reviewed most recent MRI as well as previous studies She apparently had whole head RT in past the lesion we see now isin same location as lesion from 2016 MRI but different in characteristics. This lesion is very deep and NOT amenable to surgical resection. best we could do is a biopsy. As she has already been treated for mets it is reasonable to assume this isthe necrotic remainder of the met that was already treated. If for some reason you feel a biopsy is in order this can be done. Any surgical attempt even as small as a needle biopsy will mopst likly cause worsening of her weakness, at least transiently Objective - Vital Signs/Intake and Output Vital Signs (last 24 hours): Temp Pulse Resp BP Pulse Ox 97.5 F L 63 20 96/57 L 94 L 03/19/17 06:00 03/19/17 06:00 03/19/17 06:00 03/19/17 06:00 03/18/17 22:00 Intake and Output: 03/19/17 03/19/17 06:59 18:59 Intake Total 540 Output Total 200 Balance 340 - Medications Medications: Current Medications Amlodipine Besylate (Norvasc) 10 mg PO DAILY [facility] Last Admin: 03/19/17 11:59 Dose: Not Given Atorvastatin Calcium (Lipitor) 10 mg PO DIN [facility] Last Admin: 03/18/17 17:50 Dose: Not Given Folic Acid (Folic Acid) 1 mg PO DAILY [facility] Last Admin: 03/18/17 15:35 Dose: 1 mg Gabapentin (Neurontin) 200 mg PO BID [facility] PRN Reason: Protocol Last Admin: 03/19/17 11:54 Dose: 200 mg Dexamethasone 8 mg/ Sodium (Chloride) 52 mls @ 150 mls/hr IV Q12 [facility] Last Admin: 03/19/17 12:04 Dose: 150 mls/hr Levetiracetam (Keppra 500mg Ivpb) 500 mg in 100 mls @ 400 mls/hr IVPB Q12 [facility] Last Admin: 03/19/17 12:37 Dose: 400 mls/hr Insulin Human Regular (Humulin R Low) 0 units SC ACHS [facility] PRN Reason: Protocol Last Admin: 03/19/17 12:37 Dose: 2 units Levothyroxine Sodium (Synthroid) 112 mcg PO 0600 [facility] Last Admin: 03/19/17 05:36 Dose: 112 mcg Pantoprazole Sodium (Protonix Ec Tab) 40 mg PO DAILY [facility] Last Admin: 03/19/17 11:55 Dose: 40 mg Ramipril (Altace) 10 mg PO DAILY [facility] Last Admin: 03/19/17 11:55 Dose: 10 mg - Labs Labs: PT 13.4 SECONDS (9.4-12.5) H 03/18/17 11:05 INR 1.21 (0.93-1.08) H 03/18/17 11:05 APTT 32.7 Seconds (25.1-36.5) 03/18/17 11:05
--- NOTE | 2017-03-20 01:39 | HP ---
CHIEF COMPLAINT AND HISTORY OF PRESENT ILLNESS: This is a 61-year-old female who is coming into the hospital. She has a history of hypertension, COPD, and lung cancer with radiation and chemo, who is coming into the hospital brought in by her son because of weakness in the right arm and leg. The patient states that she had a difficult time in moving her right arm. She also was having difficult time in ambulating. The patient is not able to give a full history because of underlying confusion. She was able to answer simple questions. Most of the information was taken from the medical records, talking to the nursing staff, and talking to the son as well as the ER. Her review of symptoms is limited. She does state that she is not able to move her right arm, but she is able to move her right leg. According to the son, the patient moved to her bed and noticed that she was slurring her speech, she was unable to move the right side of her body. She had been walking abnormally the night before. The patient's last chemotherapy was last month. She has been having radiation to her chest and head. ALLERGIES: NICOTINE PATCH. MEDICATIONS: Her home medications has been reviewed. She is on B12, folic acid, ipratropium, Xopenex, magnesium, Zantac, Januvia, Neurontin, omeprazole, Zovirax, and Decadron. PAST MEDICAL HISTORY: 1. Hypertension. 2. COPD. 3. Diabetes type 2. 4. Lung cancer, on chemo and radiation. SOCIAL HISTORY: She smokes one pack per day. She denies alcohol or drug use. PHYSICAL EXAMINATION: VITAL SIGNS: She has a temperature of 97.5, pulse of 63, blood pressure is 96/57, respirations 20, and O2 saturations 94%. Height is 5 feet, weight is 125 pounds, and BMI is 24.5. GENERAL: The patient lying in bed, uncomfortable, and in no acute distress. HEENT: Atraumatic and normocephalic. Anicteric sclerae. Moist mucosa. [place] conjunctivae. No oral lesions. NECK: No JVD, anterior and posterior adenopathy, thyromegaly, or bruits. CARDIOVASCULAR: S1 and S2 regular. No murmur, rubs, or gallop. LUNGS: Clear to auscultation bilaterally. No wheezes, rales, or rhonchi. ABDOMEN: Bowel sounds are positive. Soft, nontender and nondistended. No hepatosplenomegaly. No rebound and no guarding. EXTREMITIES: No cyanosis, clubbing, or edema. NEUROLOGIC: The right arm, there is 0/5 power and in the right leg, there is 2/5 power. She is awake, alert, and oriented x0. PSYCHIATRIC: Unable to fully assess. The patient is awake, alert, and oriented x0. GENITOURINARY: No CVA tenderness. VASCULAR: 2+ pulses in the carotid pulses and pedal pulses. SKIN: No erythema or nodules. SPINE: Shows normal curvature. LABORATORY DATA: White count of 8.7, hemoglobin is 10.8, and platelet count is 57. The baseline platelet count is 149 from 07/2016. She does have a history of thrombocytopenia in 03/2016 of about 50 to 95. INR is 1.2. She has a chemistry that shows a creatinine of 1.3. Troponin is 0.03. CT of the head done shows a large amount of vasogenic edema in the left hemisphere with a 2.5 cm mass in the left frontal lobe. EKG shows sinus tachycardia at 103. There is nonspecific ST changes. MRI of the brain shows a 2.3 x 3 cm lesion in the left frontal lobe, moderate amount of restricted diffusion, and large amount of surrounding vasogenic edema. ASSESSMENT: 1. Acute right-sided cerebrovascular accident secondary to metastatic lung cancer to the brain, left frontal lobe 2.3 x 3 cm with vasogenic edema. 2. Chronic obstructive pulmonary disease. 3. Coagulopathy. 4. Anemia, not otherwise specified, most likely multifactorial. 5. Diabetes type 2. 6. Hypertension. 7. Small cell carcinoma of the lung. 8. Hypothyroidism. PLAN: The patient has metastatic lung CA to the brain. The patient is going to be admitted to the hospital. She was started on steroids yesterday. There is some improvement according to the nurse who took care of her today compared to yesterday. The patient has an MRI done with contrast shows a rim-enhancing complex mass in the left frontal white matter measuring 2.9 x 2.1 mm. The patient has small cell carcinoma. The patient is going to be seen by Radiation Oncology, Dr. Jimenez. She is aware of the patient and has seen the patient. I did review her note. I will also get a consultation with Neurosurgery. The patient is going to be followed by Dr. Dobbins from Neurology. She is on Keppra for seizure precautions. The patient is going to continue with dexamethasone 8 mg q.12 hours. She is on Altace for her hypertension. She has been placed on insulin sliding scale to follow her diet for her sugars. She is on amlodipine for her hypertension as well. She is on Synthroid for hypothyroidism. continue the patient on Lipitor. She is on heart-healthy diet. I did speak to the son this morning to give an update on the patient's diagnosis and plan of care. Questions were answered. The patient had x-ray of the right humerus. There are no signs of fracture or focal lesionsit is a normal appearing x-ray. We will continue to follow closely. Prognosis is guarded. Weston Ndiaye MD
[2017-03-20] MEDS: Levothyroxine 112 MCG TAB PO SCH (06:21)
[2017-03-20] MEDS: Insulin Reg-LOW-Coverage SC SCH ×4 (08:40→23:42)
--- NOTE | 2017-03-20 09:21 | PN ---
DATE: 03/20/2017 SUBJECTIVE: The patient has no complaints of any chest pain. No shortness of breath. She is not able to move her right arm. PHYSICAL EXAMINATION: VITAL SIGNS: Temperature is 98.5, pulse is 70, blood pressure is 119/50, and respirations are 18. GENERAL: The patient is lying in bed, flat, comfortable. HEENT: No oral lesion. Anicteric sclerae. Moist mucosa. NECK: No JVD, adenopathy, or thyromegaly. CARDIOVASCULAR: S1 and S2, regular. No murmurs, rubs, or gallops. LUNGS: Clear to auscultation bilaterally. No wheeze, rales, or rhonchi. ABDOMEN: Bowel sounds are positive, soft, nontender and nondistended. EXTREMITIES: No cyanosis, clubbing or edema. LABORATORY DATA: White count of 8.7 and hemoglobin of 10.8. Creatinine is 1.3. Platelets are 57. ASSESSMENT: 1. Acute right-sided cerebrovascular accident secondary to metastatic brain lesion. 2. Left frontal 2.3 cm x 3 cm frontal lobe lesion secondary to lung cancer. 3. Small cell carcinoma of the lung. 4. Coagulopathy, stable. 5. Anemia, multifactorial. 6. Diabetes type 2. 7. Hypertension. 8. Hypothyroidism. 9. Chronic obstructive pulmonary disease. PLAN: The patient is currently comfortable. She was seen by Radiation Oncology as well as Neurosurgery, I did read their note. The patient is not a surgical candidate. Dr. Mark feels that any surgical attempt may cause worsening of her weakness. The patient is on ramipril for blood pressure. She is on dexamethasone for cerebral edema. The patient is on Keppra for seizures. The patient is on Neurontin. She is going to continue with Norvasc for hypertension. She is on Synthroid for hypothyroidism. The patient is on heart-healthy diet. She will be getting physical therapy today, although did not get physical therapy yesterday or evaluation done. I will await for input from Radiation Oncology as well as Oncology. Weston Ndiaye MD
--- NOTE | 2017-03-20 10:38 | CP.PCM.PN ---
Subjective - Date & Time of Evaluation Date of Evaluation: 03/20/17 Time of Evaluation: 09:00 - Subjective Subjective: PGY-2 Neurology progress note for Dr. rose's service Patient seen and examined at bedside. No acute distress, patient is sleeping comfortably. Patient is alert and oriented to person, place, time. She states that her condition is unchanged and continues to have weakness in her right upper and lower extremities. She denies any pain, dizziness, headache, abd pain , N&V. Objective - Vital Signs/Intake and Output Vital Signs (last 24 hours): Temp Pulse Resp BP Pulse Ox 98.7 F 54 L 20 98/59 L 97 03/20/17 08:00 03/20/17 08:00 03/20/17 08:00 03/20/17 08:00 03/20/17 08:00 Intake and Output: 03/20/17 03/20/17 06:59 18:59 Intake Total 540 Output Total 250 Balance 290 - Medications Medications: Current Medications Amlodipine Besylate (Norvasc) 10 mg PO DAILY [facility] Last Admin: 03/19/17 11:59 Dose: Not Given Atorvastatin Calcium (Lipitor) 10 mg PO DIN [facility] Last Admin: 03/19/17 17:50 Dose: 10 mg Folic Acid (Folic Acid) 1 mg PO DAILY [facility] Last Admin: 03/18/17 15:35 Dose: 1 mg Gabapentin (Neurontin) 200 mg PO BID [facility] PRN Reason: Protocol Last Admin: 03/19/17 17:50 Dose: 200 mg Dexamethasone 8 mg/ Sodium (Chloride) 52 mls @ 150 mls/hr IV Q12 [facility] Last Admin: 03/19/17 21:51 Dose: 150 mls/hr Levetiracetam (Keppra 500mg Ivpb) 500 mg in 100 mls @ 400 mls/hr IVPB Q12 [facility] Last Admin: 03/19/17 21:16 Dose: 400 mls/hr Insulin Human Regular (Humulin R Low) 0 units SC ACHS [facility] PRN Reason: Protocol Last Admin: 03/20/17 08:40 Dose: 1 units Levothyroxine Sodium (Synthroid) 112 mcg PO 0600 [facility] Last Admin: 03/20/17 06:21 Dose: 112 mcg Pantoprazole Sodium (Protonix Ec Tab) 40 mg PO DAILY [facility] Last Admin: 03/19/17 11:55 Dose: 40 mg Ramipril (Altace) 10 mg PO DAILY [facility] Last Admin: 03/19/17 11:55 Dose: 10 mg - Labs Labs: PT 13.4 SECONDS (9.4-12.5) H 03/18/17 11:05 INR 1.21 (0.93-1.08) H 03/18/17 11:05 APTT 32.7 Seconds (25.1-36.5) 03/18/17 11:05 - Constitutional Appears: No Acute Distress - Head Exam Head Exam: ATRAUMATIC, NORMAL INSPECTION, NORMOCEPHALIC - Eye Exam Eye Exam: EOMI, Normal appearance - ENT Exam ENT Exam: Mucous Membranes Moist - Respiratory Exam Respiratory Exam: Clear to Ausculation Bilateral, NORMAL BREATHING PATTERN. absent: Respiratory Distress - Cardiovascular Exam Cardiovascular Exam: REGULAR RHYTHM - Neurological Exam Neurological Exam: Alert, Awake, CN II-XII Intact, Oriented x3 Neuro motor strength exam: Left Upper Extremity: 5, Right Upper Extremity: 2/1, Left Lower Extremity: 5, Right Lower Extremity: 2/1 - Skin Skin Exam: Dry, Intact, Normal Color, Warm Assessment and Plan - Assessment and Plan (Free Text) Assessment: 61 year old female with past medical history of hypertension, COPD, diabetes, and lung cancer (chemotherapy and radiation), who presents to the emergency department with right sided weakness and slurred speech secondary left frontal mass due to metastatic lung cancer with vasogenic edema. 1. metastatic lung cancer with mass in the left frontal lobe 2. HTN 3. diabetes 4. COPD - CT of head showed 2.5cm mass in left frontal lobe - MRI showed 2.3x3 cm lesion in left frontal lobe with surrounding vasogenic edema. - continue decadron 8mg q12 - continue to monitor blood sugar will increase due to steroids - neurosurgery consulted, [facility] not recommend surgery - heme/onc consulted as well as radiology oncology - started keppra 500mg q12 for seizure precaution - EEG ordered - PT/OT Case reviewed and discussed with attending.
--- NOTE | 2017-03-20 11:04 | RAD ---
PROCEDURE: Right Hand Radiographs. HISTORY: R hand swelling COMPARISON: None. FINDINGS: BONES: No acute fracture. Ulnar styloid hypertrophic appearing likely contributing to some soft tissue fullness at this level. JOINTS: First carpal metacarpal 1st interphalangeal osteoarthrosis. Radiocarpal arthrosis. Degenerative joint space narrowing proximal and distal interphalangeal joint spaces 2nd and 3rd digits most notable. Ulnar meta carpal phalangeal joint spaces appear narrowed. No erosions seen. SOFT TISSUES: Mild prominence to the soft tissues overlying AE hypertrophic appearing ulnar styloid. No subcutaneous gas seen. The 2nd and 3rd thoracic juan 4th digits appear diffusely mildly swollen. OTHER FINDINGS: 2 to 3 mm well corticated ossification for bordering the trapezium -radial side - developmental variant accessory bone/sesamoid bone/old osseous avulsion -some considerations. IMPRESSION: Senescent/ osteoarthrosis changes Nonspecific diffuse soft tissue swelling digits and ulnar styloid area most notably. Ulnar styloid hypertrophic changes
--- NOTE | 2017-03-20 11:06 | RAD ---
PROCEDURE: Right Wrist Radiographs. HISTORY: R wrist swelling COMPARISON: None. FINDINGS: BONES: No acute fracture. Ulnar styloid hypertrophic appearing. The overlying soft tissues here are increased in prominence and density. No subcutaneous gas or gross lacerations here noted. Hypertrophic appearance is inferred as chronic. JOINTS: Radial carpal row osteoarthrosis. Carpal-first metacarpal osteoarthrosis. SOFT TISSUES: As above OTHER FINDINGS: Well corticated ossification bordering trapezium old osseous avulsion versus sesamoid bone- probable considerations. IMPRESSION: Nonspecific soft tissue swelling over osseous hypertrophic ulnar styloid Senescent/arthrosis -elsewhere -as above
[2017-03-20] MEDS: levETIRAcetam 500mg IVPB 500 MG/100 ML BAG IVPB SCH ×2 (11:24→22:49)
[2017-03-20] MEDS: Pantoprazole 40 mg EC Tab PO SCH (11:26)
--- NOTE | 2017-03-20 21:37 | CP.PCM.PN ---
Subjective - Date & Time of Evaluation Date of Evaluation: 03/20/17 Time of Evaluation: 18:00 - Subjective Subjective: Covering Dr. Poon Mental status improved Objective - Vital Signs/Intake and Output Vital Signs (last 24 hours): Temp Pulse Resp BP Pulse Ox 97.8 F 45 L 16 101/61 97 03/20/17 19:13 03/20/17 19:13 03/20/17 19:13 03/20/17 19:13 03/20/17 19:13 Intake and Output: 03/20/17 03/21/17 18:59 06:59 Intake Total 640 Output Total 1 Balance 639 - Medications Medications: Current Medications Amlodipine Besylate (Norvasc) 10 mg PO DAILY [facility] Last Admin: 03/20/17 11:29 Dose: Not Given Atorvastatin Calcium (Lipitor) 10 mg PO DIN [facility] Last Admin: 03/20/17 19:00 Dose: 10 mg Folic Acid (Folic Acid) 1 mg PO DAILY [facility] Last Admin: 03/20/17 11:26 Dose: 1 mg Gabapentin (Neurontin) 200 mg PO BID [facility] PRN Reason: Protocol Last Admin: 03/20/17 19:00 Dose: 200 mg Dexamethasone 8 mg/ Sodium (Chloride) 52 mls @ 150 mls/hr IV Q12 [facility] Last Admin: 03/20/17 11:24 Dose: 150 mls/hr Levetiracetam (Keppra 500mg Ivpb) 500 mg in 100 mls @ 400 mls/hr IVPB Q12 [facility] Last Admin: 03/20/17 11:24 Dose: 400 mls/hr Insulin Human Regular (Humulin R Low) 0 units SC ACHS [facility] PRN Reason: Protocol Last Admin: 03/20/17 17:43 Dose: 1 units Levothyroxine Sodium (Synthroid) 112 mcg PO 0600 [facility] Last Admin: 03/20/17 06:21 Dose: 112 mcg Pantoprazole Sodium (Protonix Ec Tab) 40 mg PO DAILY [facility] Last Admin: 03/20/17 11:26 Dose: 40 mg Ramipril (Altace) 10 mg PO DAILY [facility] Last Admin: 03/20/17 11:29 Dose: Not Given - Labs Labs: PT 13.4 SECONDS (9.4-12.5) H 03/18/17 11:05 INR 1.21 (0.93-1.08) H 03/18/17 11:05 APTT 32.7 Seconds (25.1-36.5) 03/18/17 11:05 - Head Exam Head Exam: ATRAUMATIC - Eye Exam Eye Exam: Normal appearance - ENT Exam ENT Exam: Mucous Membranes Dry - Respiratory Exam Respiratory Exam: NORMAL BREATHING PATTERN - Cardiovascular Exam Cardiovascular Exam: +S1, +S2 - GI/Abdominal Exam GI & Abdominal Exam: Normal Bowel Sounds - Extremities Exam Extremities Exam: Normal Inspection Assessment and Plan (1) Brain mass Assessment & Plan: 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 Poon Status: Acute
[2017-03-21] MEDS: Levothyroxine 112 MCG TAB PO SCH (08:11)
[2017-03-21] MEDS: Insulin Reg-LOW-Coverage SC SCH ×4 (08:11→22:05)
--- NOTE | 2017-03-21 09:54 | CP.PCM.PN ---
<Mari Branham - Last Filed: 03/21/17 09:52> Subjective - Date & Time of Evaluation Date of Evaluation: 03/21/17 Time of Evaluation: 09:52 - Subjective Subjective: PGY-2 Neurology progress note for Dr. dobbins's service Patient seen and examined at bedside. No acute distress, patient is sleeping comfortably. Patient is alert and oriented to person, place, time. She states that her condition is improving somewhat but continues to have weakness in her right upper and lower extremities. She denies any pain, dizziness, headache, abd pain, N&V. Objective - Vital Signs/Intake and Output Vital Signs (last 24 hours): Temp Pulse Resp BP Pulse Ox 98.3 F 116 H 18 120/64 94 L 03/21/17 08:00 03/21/17 08:00 03/21/17 08:00 03/21/17 08:00 03/21/17 08:00 Intake and Output: 03/21/17 03/21/17 06:59 18:59 Intake Total 480 Output Total 400 Balance 80 - Medications Medications: Current Medications Amlodipine Besylate (Norvasc) 10 mg PO DAILY [facility] Last Admin: 03/20/17 11:29 Dose: Not Given Atorvastatin Calcium (Lipitor) 10 mg PO DIN [facility] Last Admin: 03/20/17 19:00 Dose: 10 mg Folic Acid (Folic Acid) 1 mg PO DAILY [facility] Last Admin: 03/20/17 11:26 Dose: 1 mg Gabapentin (Neurontin) 200 mg PO BID [facility] PRN Reason: Protocol Last Admin: 03/20/17 19:00 Dose: 200 mg Dexamethasone 8 mg/ Sodium (Chloride) 52 mls @ 150 mls/hr IV Q12 [facility] Last Admin: 03/20/17 22:16 Dose: 150 mls/hr Levetiracetam (Keppra 500mg Ivpb) 500 mg in 100 mls @ 400 mls/hr IVPB Q12 [facility] Last Admin: 03/20/17 22:49 Dose: 400 mls/hr Insulin Human Regular (Humulin R Low) 0 units SC ACHS [facility] PR[facility] Reason: Protocol Last Admin: 03/21/17 08:11 Dose: 2 units Levothyroxine Sodium (Synthroid) 112 mcg PO 0600 [facility] Last Admin: 03/21/17 08:11 Dose: 112 mcg Pantoprazole Sodium (Protonix Ec Tab) 40 mg PO DAILY [facility] Last Admin: 03/20/17 11:26 Dose: 40 mg Ramipril (Altace) 10 mg PO DAILY [facility] Last Admin: 03/20/17 11:29 Dose: Not Given - Labs Labs: PT 13.4 SECONDS (9.4-12.5) H 03/18/17 11:05 INR 1.21 (0.93-1.08) H 03/18/17 11:05 APTT 32.7 Seconds (25.1-36.5) 03/18/17 11:05 - Constitutional Appears: No Acute Distress - Head Exam Head Exam: ATRAUMATIC, NORMAL INSPECTION, NORMOCEPHALIC - Eye Exam Eye Exam: EOMI, Normal appearance - ENT Exam ENT Exam: Mucous Membranes Moist - Respiratory Exam Respiratory Exam: Clear to Ausculation Bilateral, NORMAL BREATHING PATTERN. absent: Respiratory Distress - Cardiovascular Exam Cardiovascular Exam: REGULAR RHYTHM - Neurological Exam Neurological Exam: Alert, Awake, CN II-XII Intact, Oriented x3 Neuro motor strength exam: Left Upper Extremity: 5, Right Upper Extremity: 3, Left Lower Extremity: 5, Right Lower Extremity: 3 Additional comments: improvement in right sided weakness, patient is now able to move her extremities - Skin Skin Exam: Dry, Intact, Normal Color, Warm Assessment and Plan - Assessment and Plan (Free Text) Assessment: 61 year old female with past medical history of hypertension, COPD, diabetes, and lung cancer (chemotherapy and radiation), who presents to the emergency department with right sided weakness and slurred speech secondary left frontal mass due to metastatic lung cancer with vasogenic edema. 1. metastatic lung cancer with mass in the left frontal lobe 2. HTN 3. diabetes 4. COPD - CT of head showed 2.5cm mass in left frontal lobe - MRI showed 2.3x3 cm lesion in left frontal lobe with surrounding vasogenic edema. - continue decadron 8mg q12 - continue to monitor blood sugar will increase due to steroids - neurosurgery consulted, [facility] not recommend surgery - heme/onc consulted as well as radiology oncology - continue keppra 500mg q12 for seizure precaution - improvement in right sided weakness - PT/OT Case reviewed and discussed with attending. <Juancarlos Dobbins - Last Filed: 03/21/17 18:04> Objective - Vital Signs/Intake and Output Vital Signs (last 24 hours): Temp Pulse Resp BP Pulse Ox 98.4 F 46 L 20 110/62 98 03/21/17 16:00 03/21/17 16:00 03/21/17 16:00 03/21/17 16:00 03/21/17 16:00 Intake and Output: 03/21/17 03/21/17 06:59 18:59 Intake Total 480 Output Total 400 Balance 80 - Medications Medications: Current Medications Amlodipine Besylate (Norvasc) 10 mg PO DAILY [facility] Last Admin: 03/21/17 11:01 Dose: 10 mg Atorvastatin Calcium (Lipitor) 10 mg PO DIN [facility] Last Admin: 03/21/17 17:26 Dose: 10 mg Folic Acid (Folic Acid) 1 mg PO DAILY [facility] Last Admin: 03/21/17 11:10 Dose: 1 mg Gabapentin (Neurontin) 200 mg PO BID [facility] PRN Reason: Protocol Last Admin: 03/21/17 17:27 Dose: 200 mg Dexamethasone 8 mg/ Sodium (Chloride) 52 mls @ 150 mls/hr IV Q12 [facility] Last Admin: 03/21/17 11:39 Dose: 150 mls/hr Levetiracetam (Keppra 500mg Ivpb) 500 mg in 100 mls @ 400 mls/hr IVPB Q12 [facility] Last Admin: 03/21/17 11:04 Dose: 400 mls/hr Insulin Human Regular (Humulin R Low) 0 units SC ACHS [facility] PRN Reason: Protocol Last Admin: 03/21/17 17:30 Dose: 2 units Levothyroxine Sodium (Synthroid) 112 mcg PO 0600 [facility] Last Admin: 03/21/17 08:11 Dose: 112 mcg Pantoprazole Sodium (Protonix Ec Tab) 40 mg PO DAILY [facility] Last Admin: 03/21/17 11:01 Dose: 40 mg Ramipril (Altace) 10 mg PO DAILY [facility] Last Admin: 03/21/17 11:10 Dose: 10 mg - Labs Labs: PT 13.4 SECONDS (9.4-12.5) H 03/18/17 11:05 INR 1.21 (0.93-1.08) H 03/18/17 11:05 APTT 32.7 Seconds (25.1-36.5) 03/18/17 11:05
[2017-03-21] MEDS: Pantoprazole 40 mg EC Tab PO SCH (11:01)
[2017-03-21] MEDS: levETIRAcetam 500mg IVPB 500 MG/100 ML BAG IVPB SCH ×2 (11:04→23:17)
--- NOTE | 2017-03-21 17:20 | PN ---
DATE: 03/21/2017 SUBJECTIVE: The patient has no complaints of any chest pain. No shortness of breath. No headaches. She is able to move her right arm. She is able to communicate much better this morning. She is having breakfast. She has no complaints of any pain. PHYSICAL EXAMINATION: VITAL SIGNS: Temperature is 98.3, pulse of 116, blood pressure is 120/64, and respirations 18. GENERAL: The patient is lying in bed, flat, comfortable. HEENT: No oral lesion. Anicteric sclerae. Moist mucosa. NECK: No JVD, adenopathy, or thyromegaly. CARDIOVASCULAR: S1 and S2, regular. No murmurs, rubs, or gallops. LUNGS: Clear to auscultation bilaterally. No wheeze, rales, or rhonchi. ABDOMEN: Bowel sounds are positive, soft, nontender and nondistended. EXTREMITIES: no cyanosis, clubbing or edema. LABORATORY DATA: White count of 8.7, hemoglobin 10.8. Creatinine is 1.3. Wrist x-ray and hand x-ray were noted. No fractures. ASSESSMENT: 1. Acute right-sided cerebrovascular accident secondary to metastatic brain lesion. 2. Left frontal 2.3 x 3 cm metastatic lesion. 3. Small cell cancer of the lung. 4. Coagulopathy, stable. 5. Anemia, multifactorial. 6. Diabetes type 2. 7. Hypertension. 8. Hypothyroidism. 9. Chronic obstructive pulmonary disease. PLAN: The patient's right arm did show some signs of improvement. She started radiation therapy. The patient is on ramipril for her hypertension. She is on dexamethasone for her edema. She is on Keppra for her seizures. She is on Norvasc for hypertension. She is on Synthroid for hypothyroidism. I did speak to the patient's son this morning to give an update on the patient's diagnoses and plan of care. The patient should get physical therapy for further management. Weston Ndiaye MD
--- NOTE | 2017-03-21 23:20 | CP.PCM.PN ---
Subjective - Date & Time of Evaluation Date of Evaluation: 03/21/17 Time of Evaluation: 17:00 - Subjective Subjective: Has right sided weakness Objective - Vital Signs/Intake and Output Vital Signs (last 24 hours): Temp Pulse Resp BP Pulse Ox 98.4 F 46 L 20 110/62 98 03/21/17 16:00 03/21/17 16:00 03/21/17 16:00 03/21/17 16:00 03/21/17 16:00 Intake and Output: 03/21/17 03/22/17 18:59 06:59 Intake Total 300 Balance 300 - Medications Medications: Current Medications Amlodipine Besylate (Norvasc) 10 mg PO DAILY [facility] Last Admin: 03/21/17 11:01 Dose: 10 mg Atorvastatin Calcium (Lipitor) 10 mg PO DIN [facility] Last Admin: 03/21/17 17:26 Dose: 10 mg Folic Acid (Folic Acid) 1 mg PO DAILY [facility] Last Admin: 03/21/17 11:10 Dose: 1 mg Gabapentin (Neurontin) 200 mg PO BID [facility] PRN Reason: Protocol Last Admin: 03/21/17 17:27 Dose: 200 mg Dexamethasone 8 mg/ Sodium (Chloride) 52 mls @ 150 mls/hr IV Q12 [facility] Last Admin: 03/21/17 21:54 Dose: 150 mls/hr Levetiracetam (Keppra 500mg Ivpb) 500 mg in 100 mls @ 400 mls/hr IVPB Q12 [facility] Last Admin: 03/21/17 11:04 Dose: 400 mls/hr Insulin Human Regular (Humulin R Low) 0 units SC ACHS [facility] PRN Reason: Protocol Last Admin: 03/21/17 17:30 Dose: 2 units Levothyroxine Sodium (Synthroid) 112 mcg PO 0600 [facility] Last Admin: 03/21/17 08:11 Dose: 112 mcg Pantoprazole Sodium (Protonix Ec Tab) 40 mg PO DAILY [facility] Last Admin: 03/21/17 11:01 Dose: 40 mg Ramipril (Altace) 10 mg PO DAILY [facility] Last Admin: 03/21/17 11:10 Dose: 10 mg - Labs Labs: PT 13.4 SECONDS (9.4-12.5) H 03/18/17 11:05 INR 1.21 (0.93-1.08) H 03/18/17 11:05 APTT 32.7 Seconds (25.1-36.5) 03/18/17 11:05 - Head Exam Head Exam: ATRAUMATIC - Eye Exam Eye Exam: Normal appearance - ENT Exam ENT Exam: Mucous Membranes Dry - Respiratory Exam Respiratory Exam: NORMAL BREATHING PATTERN - Cardiovascular Exam Cardiovascular Exam: +S1, +S2 - GI/Abdominal Exam GI & Abdominal Exam: Normal Bowel Sounds Assessment and Plan (1) Brain mass Assessment & Plan: metastatic small cell lung cancer improving with steroids outpatient stereotactic radiotherapy Status: Acute (2) Thrombocytopenia Assessment & Plan: secondary to recent chemotherapy Status: Acute (3) Anemia Assessment & Plan: chronic disease and recent chemo Status: Acute (4) Lung cancer Assessment & Plan: stage IV outpatient treatment with Dr. Poon Status: Acute
--- NOTE | 2017-03-22 00:40 | CON ---
DATE: 03/21/2017 CARDIOLOGY CONSULTATION HISTORY: The patient is a 61-year-old woman who presented earlier this week with a syncopal episode. PAST MEDICAL HISTORY: Includes a history of lung CA, COPD, diabetes mellitus, and hypertension. She continues to smoke. No previous cardiac history. The patient denies shortness of breath or chest pain. REVIEW OF SYSTEMS: Not available. PHYSICAL EXAMINATION: VITAL SIGNS: Blood pressure is 120/64, heart rate is in the 40s, normal sinus rhythm. NECK: Negative JVD. LUNGS: Decreased breath sounds bilaterally. HEART: Reveals S1, S2. EXTREMITIES: Without edema. LABORATORIES: Troponin is negative x1. Glucose is 161, BUN and creatinine is 24 and 1.3. Hemoglobin is 10.8. IMPRESSION: 1. Status post syncope. 2. Brain edema as well as a brain mass. 3. Chronic obstructive pulmonary disease. 4. History of lung carcinoma. 5. Hypertension. 6. History of sinus bradycardia noted. PLAN: Given these findings, the patient's slow heart rate may be due to pressure due to her brain mass. In addition, we will need to rule out hypothyroidism. There are no hemodynamic consequences so far to her sinus bradycardia. We will obtain an echocardiogram to evaluate LV function. In addition, we will check her thyroid functions. Juan Brewster MD cc:
[2017-03-22] MEDS: Levothyroxine 112 MCG TAB PO SCH (06:44)
[2017-03-22 07:27] LABS: BASO # 0.01 K/mm3 (0.0-2.0); BASO % 0.1 % (0.0-3.0); GRAN # 6.45 (1.4-6.5); GRAN % 88.8 % (50.0-68.0); HEMATOCRIT 32.5 % (36.0-48.0); LYMPH # 0.6 (1.2-3.4); LYMPH % 7.7 % (22.0-35.0); MEAN CELL VOLUME 85.8 fl (80.0-105.0); MEAN CORPUSCULAR HEMOGLOBIN 28.2 pg (25.0-35.0); MEAN CORPUSCULAR HGB CONC 32.9 g/dl (31.0-37.0); MEAN PLATELET VOLUME 10.1 fl (7.0-11.0); MONO # 0.3 (0.1-0.6); MONO % 3.4 % (1.0-6.0); RED CELL DISTRIBUTION WIDTH 19.2 % (11.5-14.5); WHITE BLOOD COUNT 7.3 10^3/ul (4.5-11.0)
[2017-03-22 07:55] LABS: CALCIUM 10.5 mg/dL (8.4-10.5); POTASSIUM 5.2 mmol/L (3.6-5.0)
[2017-03-22] MEDS: Insulin Reg-LOW-Coverage SC SCH ×3 (08:12→17:29)
--- NOTE | 2017-03-22 09:08 | CP.PCM.PN ---
Subjective - Date & Time of Evaluation Date of Evaluation: 03/22/17 Time of Evaluation: 09:00 - Subjective Subjective: Ms Barrera has metastatic lung cancer with a left frontal brain metastases. She was not a surgical candidate. She will be getting her first SRS today. Objective - Vital Signs/Intake and Output Vital Signs (last 24 hours): Temp Pulse Resp BP Pulse Ox 97.3 F L 44 L 16 117/67 96 03/22/17 02:00 03/22/17 02:00 03/22/17 02:00 03/22/17 02:00 03/22/17 02:00 Intake and Output: 03/22/17 03/22/17 06:59 18:59 Intake Total 870 Balance 870 - Medications Medications: Current Medications Amlodipine Besylate (Norvasc) 10 mg PO DAILY [facility] Last Admin: 03/21/17 11:01 Dose: 10 mg Atorvastatin Calcium (Lipitor) 10 mg PO DIN [facility] Last Admin: 03/21/17 17:26 Dose: 10 mg Folic Acid (Folic Acid) 1 mg PO DAILY [facility] Last Admin: 03/21/17 11:10 Dose: 1 mg Gabapentin (Neurontin) 200 mg PO BID [facility] PRN Reason: Protocol Last Admin: 03/21/17 17:27 Dose: 200 mg Dexamethasone 8 mg/ Sodium (Chloride) 52 mls @ 150 mls/hr IV Q12 [facility] Last Admin: 03/21/17 21:54 Dose: 150 mls/hr Levetiracetam (Keppra 500mg Ivpb) 500 mg in 100 mls @ 400 mls/hr IVPB Q12 [facility] Last Admin: 03/21/17 23:17 Dose: 400 mls/hr Insulin Human Regular (Humulin R Low) 0 units SC ACHS [facility] PRN Reason: Protocol Last Admin: 03/22/17 08:12 Dose: 3 units Levothyroxine Sodium (Synthroid) 112 mcg PO 0600 [facility] Last Admin: 03/22/17 06:44 Dose: 112 mcg Pantoprazole Sodium (Protonix Ec Tab) 40 mg PO DAILY [facility] Last Admin: 03/21/17 11:01 Dose: 40 mg Ramipril (Altace) 10 mg PO DAILY [facility] Last Admin: 03/21/17 11:10 Dose: 10 mg - Labs Labs: 03/22/17 07:00 03/22/17 07:00 PT 13.4 SECONDS (9.4-12.5) H 03/18/17 11:05 INR 1.21 (0.93-1.08) H 03/18/17 11:05 APTT 32.7 Seconds (25.1-36.5) 03/18/17 11:05
[2017-03-22] MEDS: Pantoprazole 40 mg EC Tab PO SCH (09:14)
[2017-03-22] MEDS ORDERED: Tmp-Smz 800 mg-160 mg DS Tab PO SCH (10:00)
--- NOTE | 2017-03-22 10:35 | PN ---
DATE: 03/22/2017 SUBJECTIVE: She is comfortable in bed, in no acute distress. She still has right arm weakness. Leg weakness has improved. She is currently undergoing radiation because of the new frontal lobe lesion. She has been on single-agent Abraxane for stage IV lung cancer. She has chronic cough with mucoid expectoration secondary to COPD. Denies any shortness of breath, no chest pain. Undergoing bedside physical therapy. REVIEW OF SYSTEMS: As per HPI. Rest of 12-point review of systems reviewed and negative. LABORATORY DATA: White count 7.3, hemoglobin 10.7, hematocrit 32.5, and platelet count 81. Sodium 139, potassium 5.2, creatinine 1.3, bilirubin 1.2, AST 18, ALT 23, INR 1.2. MEDICATIONS: Norvasc 10 mg daily, Lipitor 10 mg daily, dexamethasone 8 mg b.i.d., folic acid 1 mg daily, Neurontin 200 mg p.o. b.i.d., insulin sliding scale, Keppra 500 mg q. 12 hours, Synthroid 112 daily, Protonix and Altace. PHYSICAL EXAMINATION: GENERAL: Comfortable in bed, in no acute distress. VITAL SIGNS: Temperature is 97.3, heart rate is 44 per minute, blood pressure is 117/67, respiratory rate 16 per minute, oxygen saturation 96 per minute. HEENT: Pallor positive. NECK: No lymphadenopathy. CHEST: Air entry present and equal bilaterally. No added sounds. CARDIOVASCULAR: S1 and S2 normal. No murmur. No gallop. ABDOMEN: Soft and nontender. No hepatosplenomegaly. EXTREMITIES: Right extremity, unable to lift up; right lower extremity weakness present. Left-sided motor power normal. [employer]: Alert and oriented x3. No focal sensory or motor deficits. SKIN: No petechiae, no rash. ASSESSMENT: 1. Stage IV lung cancer, new brain metastasis. 2. Diabetes-mellitus type 2. 3. Hypertension. 4. Peripheral neuropathy. 5. Chronic obstructive pulmonary disease secondary to chronic smoking. PLAN: She is undergoing radiation to the brain, left frontal region; on steroid, Decadron 8 mg IV q.12 hours. Neurology is following. We will add Bactrim DS 2 days a week for PCP prophylaxis because of high dose steroids. Blood count stable, severe thrombocytopenia related to chemotherapy. She also has chronic kidney disease, BUN and creatinine stable. Continue folic acid. Continue Neurontin. Thank you Dr. Blackman, for allowing us to participate in Ms. Holly's care. Jannet Poon MD
[2017-03-22] MEDS: levETIRAcetam 500mg IVPB 500 MG/100 ML BAG IVPB SCH (13:34)
--- NOTE | 2017-03-22 14:11 | CP.PCM.PN ---
Subjective - Date & Time of Evaluation Date of Evaluation: 03/22/17 Time of Evaluation: 09:00 - Subjective Subjective: PGY-2 Neurology progress note for Dr. rose's service Patient seen and examined at bedside. No acute distress, patient is comfortably. Patient is alert and oriented to person, place, time. She states that she os the same as yesterday, continues to have weakness in her right upper and lower extremities. She denies any pain, dizziness, headache, abd pain , N&V. Objective - Vital Signs/Intake and Output Vital Signs (last 24 hours): Temp Pulse Resp BP Pulse Ox 98.5 F 41 L 16 113/64 96 03/22/17 09:32 03/22/17 09:32 03/22/17 09:32 03/22/17 09:32 03/22/17 09:32 Intake and Output: 03/22/17 03/22/17 06:59 18:59 Intake Total 870 Balance 870 - Medications Medications: Current Medications Amlodipine Besylate (Norvasc) 10 mg PO DAILY [facility] Last Admin: 03/22/17 09:14 Dose: 10 mg Atorvastatin Calcium (Lipitor) 10 mg PO DIN [facility] Last Admin: 03/21/17 17:26 Dose: 10 mg Folic Acid (Folic Acid) 1 mg PO DAILY [facility] Last Admin: 03/22/17 09:14 Dose: 1 mg Gabapentin (Neurontin) 200 mg PO BID [facility] PRN Reason: Protocol Last Admin: 03/22/17 09:14 Dose: 200 mg Dexamethasone 8 mg/ Sodium (Chloride) 52 mls @ 150 mls/hr IV Q12 [facility] Last Admin: 03/22/17 12:15 Dose: 150 mls/hr Levetiracetam (Keppra 500mg Ivpb) 500 mg in 100 mls @ 400 mls/hr IVPB Q12 [facility] Last Admin: 03/22/17 13:34 Dose: 400 mls/hr Insulin Human Regular (Humulin R Low) 0 units SC ACHS [facility] PRN Reason: Protocol Last Admin: 03/22/17 13:38 Dose: Not Given Levothyroxine Sodium (Synthroid) 112 mcg PO 0600 [facility] Last Admin: 03/22/17 06:44 Dose: 112 mcg Pantoprazole Sodium (Protonix Ec Tab) 40 mg PO DAILY [facility] Last Admin: 03/22/17 09:14 Dose: 40 mg Ramipril (Altace) 10 mg PO DAILY [facility] Last Admin: 03/22/17 09:14 Dose: 10 mg Trimethoprim/Sulfamethoxazole (Bactrim Ds Tab) 1 tab PO BID [facility] PRN Reason: Protocol Stop: 03/24/17 10:00 Last Admin: 03/22/17 12:15 Dose: 1 tab - Labs Labs: 03/22/17 07:00 03/22/17 07:00 PT 13.4 SECONDS (9.4-12.5) H 03/18/17 11:05 INR 1.21 (0.93-1.08) H 03/18/17 11:05 APTT 32.7 Seconds (25.1-36.5) 03/18/17 11:05 - Constitutional Appears: No Acute Distress - Head Exam Head Exam: ATRAUMATIC, NORMAL INSPECTION, NORMOCEPHALIC - Eye Exam Eye Exam: EOMI - ENT Exam ENT Exam: Mucous Membranes Moist - Respiratory Exam Respiratory Exam: NORMAL BREATHING PATTERN. absent: Respiratory Distress - Cardiovascular Exam Cardiovascular Exam: REGULAR RHYTHM - Neurological Exam Neurological Exam: Alert, Awake, CN II-XII Intact, Oriented x3 Neuro motor strength exam: Left Upper Extremity: 5, Right Upper Extremity: 3, Left Lower Extremity: 5, Right Lower Extremity: 3 - Skin Skin Exam: Dry, Intact, Normal Color, Warm Assessment and Plan - Assessment and Plan (Free Text) Assessment: 61 year old female with past medical history of hypertension, COPD, diabetes, and lung cancer (chemotherapy and radiation), who presents to the emergency department with right sided weakness and slurred speech secondary left frontal mass due to metastatic lung cancer with vasogenic edema. 1. metastatic lung cancer with mass in the left frontal lobe 2. HTN 3. diabetes 4. COPD - CT of head showed 2.5cm mass in left frontal lobe - MRI showed 2.3x3 cm lesion in left frontal lobe with surrounding vasogenic edema. - continue decadron 8mg q12 - continue to monitor blood sugar will increase due to steroids - neurosurgery consulted, dose not recommend surgery - heme/onc consulted as well as radiology oncology - patient is scheduled for srs radiation today - continue keppra 500mg q12 for seizure precaution - improvement in right sided weakness - PT/OT Case reviewed and discussed with attending.
--- NOTE | 2017-03-22 18:02 | PN ---
DATE: 03/22/2017 CARDIOLOGY FOLLOWUP SUBJECTIVE: The patient is comfortable. PHYSICAL EXAMINATION: VITAL SIGNS: Blood pressure 113/64, heart rate is in the 40s, sinus bradycardia. NECK: Negative JVD. LUNGS: Without rales. HEART: S1 and S2. EXTREMITIES: Without edema. LABORATORY DATA: The TSH is 0.86 and hemoglobin is 10.7. Echocardiogram preliminary report shows normal LV function with an EF of 60-65%. IMPRESSION: 1. Brain metastases. 2. Sinus bradycardia without evidence of hemodynamic sequelae. 3. Chronic obstructive pulmonary disease. 4. Hypertension. 5. 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 PLAN: 1. Given these findings, the patient's bradycardia is likely due to her intracerebral mass. 2. We will check a T4 to be complete. Juan Brewster MD
--- NOTE | 2017-03-22 20:36 | CARD ---
APPROVED REPORT EXAM: Two-dimensional and M-mode echocardiogram with Doppler and color Doppler. INDICATION BRADYCARDIA 2D DIMENSIONS Left Atrium (2D)3.0 (1.6-4.0cm)IVSd1.2 (0.7-1.1cm) LVDd4.0 (3.9-5.9cm)PWd1.4 (0.7-1.1cm) LVDs2.6 (2.5-4.0cm)FS (%) 34.1 % LVEF (%)63.7 (>50%) M-Mode DIMENSIONS Aortic Root2.10 (2.2-3.7cm)Aortic Cusp Exc.1.20 (1.5-2.0cm) Aortic Valve AoV Peak Pohndyaq836.0cm/Jenny Peak GR.11mmHg Mitral Valve MV E Yjmewgql49.7cm/sMV A Pmaafwaw40.2cm/sE/A ratio0.8 TDI E/Lateral E'0.0E/Medial E'0.0 Tricuspid Valve TR Peak Trrdxvop085gg/sRAP [id number] Peak Gr.12mmHg [id number] LEFT VENTRICLE The left ventricle is normal size. There is normal left ventricular wall thickness. The left ventricular function is normal. The left ventricular ejection fraction is within the normal range. There is normal LV segmental wall motion. Transmitral Doppler flow pattern is Grade I-abnormal relaxation pattern. RIGHT VENTRICLE The right ventricle is mildly dilated. There is normal right ventricular wall thickness. The right ventricular systolic function is normal. ATRIA The left atrium size is normal. The right atrium size is normal. AORTIC VALVE The aortic valve is not well visualized. No aortic regurgitation is present. There is no aortic valvular stenosis. MITRAL VALVE The mitral valve is mildly thickened. There is no mitral valve regurgitation noted. There is no mitral valve stenosis. TRICUSPID VALVE There is no pulmonary hypertension. GREAT VESSELS The aortic root is normal in size. PERICARDIAL EFFUSION There is a trace loculated anterior pericardial effusion. <Conclusion> The left ventricle is normal size. There is normal left ventricular wall thickness. The left ventricular function is normal. The left ventricular ejection fraction is within the normal range. There is normal LV segmental wall motion. Transmitral Doppler flow pattern is Grade I-abnormal relaxation pattern.
[2017-03-22 21:56] VITALS: BP 119/63; PULSE 49; RESP 18; TEMP 98; O2SAT 98
--- NOTE | 2017-03-23 08:13 | DS ---
HISTORY OF PRESENT ILLNESS: This is a 61-year-old female who was coming into the hospital, was found to have a metastatic lung lesion in the brain. She had weakness in the right arm and right leg. She was placed on steroids and had improvement of her symptoms. The patient is not a surgical candidate. She is supposed to get her first radiation treatment today. This is a correction from my last note that said that she started radiation, but she had not started radiation. The patient is currently comfortable. She is going to go rehab. No complaints of any headaches or dizziness. She is able to move her right arm better. PHYSICAL EXAMINATION: VITAL SIGNS: Temperature is 97.3, pulse is 44, blood pressure is 117/67, respirations 16, and O2 saturation 96%. GENERAL: The patient is lying in bed, flat, comfortable. HEENT: No oral lesion. Anicteric sclerae. Moist mucosa. NECK: No JVD, adenopathy, or thyromegaly. CARDIOVASCULAR: S1 and S2, regular. No murmurs, rubs, or gallops. LUNGS: Clear to auscultation bilaterally. No wheeze, rales, or rhonchi. ABDOMEN: Bowel sounds are positive, soft, nontender and nondistended. EXTREMITIES: No cyanosis, clubbing or edema. ASSESSMENT: 1. 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 2. Left frontal 2.3 x 3 cm metastatic lung lesion. 3. Small-cell cancer of the lung. 4. Coagulopathy, stable. 5. Anemia, multifactorial. 6. Diabetes type 2. 7. Hypertension. 8. Hypothyroidism. 9. Chronic obstructive pulmonary disease. PLAN: The patient is currently on Altace for hypertension. She is going to continue with dexamethasone. She is on Neurontin for neuropathy. She is on Norvasc for hypertension. She is on Synthroid for her hypothyroidism. Weston Ndiaye MD
== END 2017-03-22 22:04 | DRG 533 ==
LOC: ED 10:26 → ERH 13:13 → 5RSO 17:17
PROVIDERS: ADMIT Internal Medicine Nephrology; ATTEND Internal Medicine Nephrology
PROC: D0001ZZ Beam Radiation of Brain using Photons 1 - 10 MeV (ICD-10-PCS; principal; 2017-03-22)
DX: C79.31 Secondary malignant neoplasm of brain (principal); I63.9 Cerebral infarction, unspecified; G93.6 Cerebral edema; D68.9 Coagulation defect, unspecified; D69.6 Thrombocytopenia, unspecified; C34.90 Malignant neoplasm of unspecified part of unspecified bronchus or lung; E11.42 Type 2 diabetes mellitus with diabetic polyneuropathy; R47.81 Slurred speech; J44.9 Chronic obstructive pulmonary disease, unspecified; D64.9 Anemia, unspecified; E03.9 Hypothyroidism, unspecified; I10 Essential (primary) hypertension; E78.00 Pure hypercholesterolemia, unspecified; R00.1 Bradycardia, unspecified; F17.210 Nicotine dependence, cigarettes, uncomplicated; Z92.21 Personal history of antineoplastic chemotherapy